=== PATIENT | female | born 1970 | race Caucasian/White ===

== ENCOUNTER 2016-12-15 21:21 | Emergency (ER) | payer OTHER ==
--- NOTE | 2016-12-15 22:50 | RAD ---
Indication: Left knee pain 4 views of left knee demonstrates no fracture. No joint effusion is noted. Ankle mortise is intact. IMPRESSION: No fracture of the left knee is noted.
--- NOTE | 2016-12-15 23:36 | ED ---
Lower Extremity - HPI Summary HPI Summary: Patient jumped 4-5 feet off a retaining wall today and felt a "crunch and pop" in her knee. She had immediate pain and has had pain with weight bearing. She denies previous injury to this knee. No swelling, bruising, warmth or redness. The knee feels unstable without catching, or clicking. She is able to bear weight. - History of Current Complaint Chief Complaint: EDExtremityLower Stated Complaint: LEFT KNEE INJURY Time Seen by Provider: 12/15/16 23:26 Hx Obtained From: Patient, Family/Education Professor Mechanism Of Injury: Fall From Height Of: - jump from 4-5 feet Onset of Pain: Immediate Onset/Duration: Hours Severity Initially: Severe Severity Currently: Severe Pain Intensity: 10 Timing: Constant Location: Is Discrete @ - left knee Character Of Pain: Sharp, Aching Associated Signs And Symptoms: Positive: Knee Pain Aggravating Factor(s): Standing Alleviating Factor(s): Rest Able to Bear Weight: Yes - with pain - Allergies/Home Medications Allergies/Adverse Reactions: Allergies Allergy/AdvReac Type Severity Reaction Status Date / Time No Known Allergies Allergy Verified 12/15/16 21:41 Home Medications: Home Medications NK [No Home Medications Reported] 12/15/16 [History Confirmed 12/15/16] PMH/Surg Hx/FS Hx/Imm Hx Cardiovascular History: Reports: Hx Hypertension - BORDERLINE HTN Musculoskeletal History: Reports: Other Musculoskeletal History - CTS RIGHT WRIST Sensory History: Reports: Hx Contacts or Glasses Denies: Hx Hearing Aid Opthamlomology History: Reports: Hx Contacts or Glasses - Surgical History Surgery Procedure, Year, and Place[place] [facility] Anesthesia Reactions: No Infectious Disease History: No Infectious Disease History: Denies: Traveled Outside the [place] in Last 30 Days - Family History Known Family History: Positive: None - Social History Occupation: Employed Full-time Lives: With Family Alcohol Use: None Substance Use Type: Reports: None Smoking Status (MU): Never Smoked Tobacco Have You Smoked in the Last Year: No Review of Systems Positive: Arthralgia, Myalgia, Decreased ROM. Negative: Edema Negative: Bruising Negative: Paresthesia, Numbness All Other Systems Reviewed And Are Negative: Yes Physical Exam Triage Information Reviewed: Yes Vital Signs On Initial Exam: Initial Vitals Temp Pulse Resp BP Pulse Ox 98.2 F 66 19 149/75 99 12/15/16 21:38 12/15/16 21:38 12/15/16 21:38 12/15/16 21:38 12/15/16 21:38 Vital Signs Reviewed: Yes Appearance: Positive: Well-Appearing, Pain Distress, Obese Skin: Positive: Warm, Skin Color Reflects Adequate Perfusion, Dry, Soft Head/Face: Positive: Normal Head/Face Inspection Eyes: Positive: EOMI, KIMMY, Conjunctiva Clear ENT: Positive: Hearing grossly normal Respiratory/Lung Sounds: Positive: Breath Sounds Present Cardiovascular: Positive: RRR Musculoskeletal: Positive: Limited @ - Left knee extension to 0, flexion to 90; stable varus/valgus stress, Pain @ - TTP left popliteal fossa, medial and lateral joint lines; non-tender MCL/LCL Neurological: Positive: Sensory/Motor Intact, Alert, Oriented to Person Place, Time, NV Bundle Intact Distally, Normal Gait Psychiatric: Positive: Affect/Mood Appropriate AVPU Assessment: Alert Diagnostics - Vital Signs Vital Signs Temp Pulse Resp BP Pulse Ox 12/15/16 21:40 98.2 F 66 18 149/75 100 12/15/16 21:38 98.2 F 66 19 149/75 99 - Laboratory Lab Statement: Any lab studies that have been ordered have been reviewed, and results considered in the medical decision making process. - Radiology No standard instances Xray Interpretation: No Acute Changes Radiology Interpretation Completed By: Radiologist Lower Extremity Course/Dx - Diagnoses Differential Diagnosis/HQI/PQRI: Positive: Arthritis, Bursitis, Cellulitis, Contusion, Dislocation, Fracture (Closed), Sprain, Strain Provider Diagnoses: Strain of left knee Discharge - Discharge Plan Condition: Stable Disposition: HOME Patient Education Materials: RICE Therapy (ED), Knee Pain (ED) Forms: *Work Release Referrals: Therese Corral MD [Primary Care Provider] - Kevin Ardon MD [Medical Doctor] - Additional Instructions: Please elevate your knee above your heart, apply ice several times daily for 20 minutes, wear a compression device (like an KATY bandage) and rest your knee. Use crutches to keep weight off the knee as your pain improves. Take ibuprofen 600mg three times daily with meals for the next 5-7 days to decrease swelling and pain. Call Orthopedics in the morning for an appointment next week for evaluation if your symptoms do not begin to improve. Return to the emergency department if symptoms worsen.
[2016-12-15] MEDS ORDERED: Ibuprofen TAB* 400 MG PO ONE (23:48)
[2016-12-16 00:17] VITALS: BP 137/69
== END 2016-12-16 00:10 | disposition home or self-care (01) ==
LOC: ED 21:21
DX: S83.92XA Sprain of unspecified site of left knee, initial encounter (principal); W13.8XXA Fall from, out of or through other building or structure, initial encounter; Y93.9 Activity, unspecified; Y92.9 Unspecified place or not applicable; Y99.9 Unspecified external cause status
CPT/HCPCS: 99282; A9270-GY

== ENCOUNTER 2018-06-29 06:04 | Observation (INO) | payer OTHER ==
--- NOTE | 2018-06-28 11:10 | CONS ---
CONSULTATION REPORT: DATE OF PROCEDURE: 06/29/18 REASON FOR CONSULT: I was asked by Dr. Hicks to see this 48-year-old white female for cystoscopy and bilateral ureteral stents insertion. HISTORY OF PRESENT ILLNESS: Ms. Hartley is followed by Dr. Hicks because of a 5- cm submucosal cervical fibroid. She is scheduled to undergo abdominal hysterectomy. Because of the proximity of the fibroid to the ureters, Dr. Hicks requested preoperative placement of bilateral ureteral stents. The patient has no history of renal diseases and/or any voiding symptoms. PLAN/RECOMMENDATIONS: The plan therefore is to proceed with cystoscopy, bilateral retrograde pyelographies and bilateral ureteral stents insertion just before her scheduled hysterectomy. The procedure will be done under the same anesthetic. Because of the expected edema in the ureters from the surgery, the plan is to leave the stents in for about a week, and they will be removed in the office as an outpatient afterwards. I discussed the above plans in detail with the patient and her . All their questions were answered. [id number]/CPS #: [id number] GEOFFREY
[~2018-06-29 06:04] MED LIST: Acetaminophen TAB* 325 MG PO ONE; Buffered Lidocaine 0.9% SYRIN* 5 ML/SYR SYRINGE INTRADERM ONE; Gabapentin CAP(*) 300 MG PO ONE
--- OUTSIDE RECORDS SUMMARY | 2018-06-29 06:07 | XMS REPORT | Continuity of Care Document ---
:1970 External Reference #:[id number] Author Name Agnes Hicks MD Address [address] [facility] [place] [address] Care Team Providers Name Role Phone Sara Corral MD Primary Care Physician Unavailable Payers Type Date Identification Numbers Payment Provider Subscriber Policy Number: [id number] [employer] Ppo Vincent Angeles PayID: [id number] [address] [place] [address] Advance Directives Description No Information Available Problems Description No Active Problems Family History Date Family Member(s) Problem(s) Comments Father Hypertension Father due to Unknown Causes () Mother [place] Mother Hypertension Number of Children 3 First Son Healthy Second Son A&W First Daughter Healthy Number of Siblings Siblings: 1 First Brother Osteoarthritis Social History Type Date Description Comments Sex Unknown Education Highest level of education completed is a master's degree Marital Status Patient is Living Situation Lives with spouse, sons and daughter Diet Diet is healthy and well balanced Occupation It Cigarette Use Never smoked cigarettes Alcohol Denies alcohol use Tobacco Use Start: Unknown Patient has never smoked Drug Use Denies drug use Smoking Status Reviewed: 06/13/18 Patient has never smoked Daily Caffeine Drinks on average 1 cup of coffee a day Exercise Type/Frequency Exercises sporadically Current Seat Belt/Car Seat Always uses a seat belt Currently Active The patient is currently sexually active STD's Has genital herpes UNKNOWN Buddhism Allergies, Adverse Reactions, Alerts Description No Known Drug Allergies Medications Medication Date Status Form Strength Qnty SIG Indications Ordering Provider Lupron Depot 03/13 Active Kit 11.25mg 1units Inject Agnes (3-Month) 11.25MG MD Kurt Intramu scularl y Every 3 Months (Given AT [facility]) Hydrochlorothia 03/06 Active Capsules 12.5mg 90caps 1 by Rik morrissey mouth s Doctor every day Taytulla 03/06 Hx Capsules 1-20mg-mc samplepac 2 by Agnes g(24) ket mouth MD Kurt - every 12/ day for 5 days then 1 po qd No Active 07/06 Hx Unknown Medications /2017 - 03/06 Labetalol HCL 03/13 Hx Tablets 100mg 60tabs two Angelica Kamila tabs PO COLLEGE ARCHIVIST, CNM - twice 06/26 daily Acyclovir 02/26 Hx Tablets 400mg 60tabs 1 PO Nghia ATim /2007 bid Dian Wilburn - 06/26 Glucometer 12/18 Hx Kit Sinai Jump, Elite Classic /2007 ANP-C - 12/18 Accu-Chek 12/18 Hx Strips 100units use as Sinai Jump, Active Strips /2007 directe ANP-C - d 06/26 Accu-Chek 12/18 Hx Kit 1units use as Sinai Jump, Compact Plus /2007 directe ANP-C Care Kit - d 08/26 Accu-Chek 12/18 Hx Misc 100units use as Sinai Jump, Multiclix directe ANP-C Lancets - d 08/26 Prenate 08/29 Hx 100units 1 po qd Nghia Nickerson Dian Wilburn Vitamins - 06/26 None Hx Unknown /0000 - 08/26 Metoprolol Hx Unknown Succinate ER /0000 - 06/29 Medications Administered in Office Medication Date Status Form Strength Qnty SIG Indications Ordering Provider PT SCRN Tbco Administered Injection Agnes Id as Non User 018 MD Kurt PT SCRN Tbco Administered Injection Agnes Id as Non User 018 MD Kurt PT SCRN Tbco Administered Injection Agnes Id as Non User 018 MD Kurt PT SCRN Tbco Administered Injection Agnes Id as Non User 018 MD Kurt PT SCRN Tbco Administered Injection Júnior E. Id as Non User 004 Dian Winters PT SCRN Tbco Administered Injection Júnior Hopson Id as Non User 004 Dian Winters Immunizations Description No Information Available Vital Signs Date Vital Result Comment 06/13/2018 10:03am BP Systolic 148 mmHg BP Diastolic 88 mmHg Body Temperature 98.4 F Heart Rate 80 /min Respiratory Rate 16 /min Height 63 inches 5'3" Weight 190.00 lb BMI (Body Mass Index) 33.7 kg/m2 Last Menstrual Period [id number] 3 Parity 3 03/13/2018 11:37am BP Systolic 126 mmHg BP Diastolic 76 mmHg Height 63 inches 5'3" Weight 190.00 lb BMI (Body Mass Index) 33.7 kg/m2 Last Menstrual Period [id number] 3 Parity 3 03/06/2018 8:47am BP Systolic 162 mmHg BP Diastolic 82 mmHg Height 63 inches 5'3" Weight 190.00 lb BMI (Body Mass Index) 33.7 kg/m2 Last Menstrual Period [id number] 3 Parity 3 07/06/2017 3:10pm BP Systolic 148 mmHg BP Diastolic 76 mmHg Height 63 inches 5'3" Weight 193.00 lb BMI (Body Mass Index) 34.2 kg/m2 Last Menstrual Period 1501021 3 Parity 3 08/26/2014 9:19am BP Systolic 160 mmHg BP Diastolic 82 mmHg Height 64.0 inches 5'4" Weight 185.00 lb BMI (Body Mass Index) 31.8 kg/m2 Last Menstrual Period [id number] 3 Parity 3 08/09/2011 7:54am BP Systolic 136 mmHg BP Diastolic 82 mmHg Height 63.50 inches 5'3.50" Weight 184.00 lb BMI (Body Mass Index) 32.1 kg/m2 Last Menstrual Period 8229052 3 Parity 3 04/01/2008 9:37am BP Systolic 138 mmHg L And R Arm BP Diastolic 90 mmHg L And R Arm Body Temperature 96.3 F Height 63.5 inches 5'3.50" Weight 198.00 lb BMI (Body Mass Index) 34.5 kg/m2 Last Menstrual Period 0 03/27/2008 1:11pm BP Systolic 134 mmHg BP Diastolic 80 mmHg Height 63.5 inches 5'3.50" Weight 200.00 lb BMI (Body Mass Index) 34.9 kg/m2 Last Menstrual Period 0 03/13/2008 1:06pm BP Systolic 164 mmHg BP Diastolic 92 mmHg Body Temperature 97.9 F Height 63.5 inches 5'3.50" Weight 198.00 lb BMI (Body Mass Index) 34.5 kg/m2 Last Menstrual Period 0 08/30/2007 9:41am BP Systolic 132 mmHg BP Diastolic 74 mmHg Height 63.5 inches 5'3.50" Weight 180.00 lb BMI (Body Mass Index) 31.4 kg/m2 Last Menstrual Period 0576003 3 Parity 2 08/24/2007 10:12am BP Systolic 122 mmHg BP Diastolic 74 mmHg Height 63.5 inches 5'3.50" Weight 179.00 lb BMI (Body Mass Index) 31.2 kg/m2 Last Menstrual Period [id number] 06/22/2006 8:37am BP Systolic 118 mmHg BP Diastolic 80 mmHg Height 63.5 inches 5'3.50" Weight 166.00 lb BMI (Body Mass Index) 28.9 kg/m2 05/18/2005 8:56am BP Systolic 122 mmHg BP Diastolic 70 mmHg Height 63.5 inches 5'3.50" Weight 175.00 lb BMI (Body Mass Index) 30.5 kg/m2 Last Menstrual Period 5955051 2 Parity 2 Results Test Date Facility Test Result H/L Range Note CBC Auto Diff 06/18/2018 [facility] White Blood 9.1 10^3/uL N 3.5-10.8 [place] [address] Count [phone] Red Blood Count 4.94 10^6/uL N 4.00-5.40 Hemoglobin 12.9 g/dL N 12.0-16.0 Hematocrit 39 % N 35-47 Mean Corpuscular Volume 79 fL Low 80-97 Mean Corpuscular Hemoglobin 26 pg Low 27-31 Mean Corpuscular HGB Conc 33 g/dL N 31-36 Red Cell Distribution Width 15 % N 10.5-15 Platelet Count 359 10^3/uL N 150-450 Mean Platelet Volume 7.6 fL N 7.4-10.4 Abs Neutrophils 5.2 10^3/uL N 1.5-7.7 Abs Lymphocytes 2.8 10^3/uL N 1.0-4.8 Abs Monocytes 0.7 10^3/uL N 0-0.8 Abs Eosinophils 0.3 10^3/uL N 0-0.6 Abs Basophils 0.1 10^3/uL N 0-0.2 Abs Nucleated RBC 0 10^3/uL Granulocyte % 57.2 % Lymphocyte % 30.6 % Monocyte % 7.9 % Eosinophil % 3.3 % Basophil % 1.0 % Nucleated Red Blood Cells % 0 Type And Screen 06/18/2018 [facility] Patient Blood Type A Positive [place] [id number] [phone] Antibody Screen NEGATIVE Laboratory test 07/06/2017 [facility] Cytology SEE RESULT BELOW 1 finding [place] [address] [phone] Laboratory test 08/26/2014 [facility] Cytology RUN DATE: [place] [address] <SEE NOTE> [phone] Human Papilloma Virus Rna Negative N Negative 3 Laboratory test 08/09/2011 [facility] Cyt[place] [address] [place] [address] <SEE NOTE> [phone] CBC With 02/29/2008 [facility] White Blood 9.3 CUMM 4.8- [place] [address] Count 10.8 Stat [phone] Red Cell Count 4.15 CUMM Low 4.2-5.4 Hemoglobin 12.7 g/dL 12.0-16.0 Hematocrit 36 % 35-47 Mean Corpuscular Volume 86 um3 79-97 Mean Corpuscular Hemoglob 31 pg 27-31 Mean Corpuscular HGB Cone 36 g/dL 32-36 Redcell Distribution WDTH 14 % 10.5-15 Platelet Count 170 CUMM 150-450 Mean Platelet Volume 9.0 um3 7.4-10.4 Gran % 65.2 % 38-83 Lymph % 25.2 % 20-45 Mononuclear % 8.1 % 1-9 Eosinophil % 1.1 % 0-6 Basophil % 0.4 % 0-2 Abs Lymphs 2.3 1.0-4.8 Abs Mononuclear 0.8 0-0.8 Absolute Neutrophil Count 6.0 1.5-7.7 Abs Eosinophils 0.1 0-0.6 Abs Basophils 0 0-0.2 Uric Acid Stat 02/29/2008 [facility] Uric Acid 9.8 mg/dL High 2.6-7.2 [place] [address] [phone] Laboratory test 02/29/2008 [facility] Alt (SGPT) 36 U/L 14- 54 [place] [address] [phone] Ast (Sgot) 28 U/L 12-42 Urinalysis W/Microscopic Stat 02/29/2008 [facility] Ua Color STRAW [place], [place] [id number] [phone] Appearance-Urine HAZY Specific [place]-Ur 1.007 Low 1.010-1.030 Esterase-Urine NEGATIVE Negative Nitrite NEGATIVE Negative Hbmkasgaywdz-Fp-VPZ NEGATIVE Negative Protein-Urine 2+ Abnormal Negative PH-Urine 7.0 5-9 Blood-Urine TRACE Abnormal Negative Ketones-Urine NEGATIVE Negative Bilirubin-Ur NEGATIVE Negative Glucose-Urine NEGATIVE Negative WBC-Urine RARE 0-5 RBC-Urine RARE 0-2 Mucus Urine SMALL Epith Cells-Ur MODERATE Bacteria-Urine RARE Amorphous Sed-U FEW Laboratory test 02/20/2008 [facility] Genital For [POSITIVE FOR GR 5 [place] [address] GRP B Strep <SEE NOTE> [phone] Only Laboratory test 12/18/2007 [facility] 1HR Glucose 226 mg/dL 6 finding [place], [place] [id number] [phone] Fasting Glucose 110 mg/dL 70-110 3HR Glucose 85 mg/dL 7 2HR Glucose 168 mg/dL 8 Total Protein 24HR 12/06/2007 [facility] Total Protein RD 8 mg/ [place] [address] Urine OB Pat [phone] Urine Total Protein/24HR 128 MG/24HR 0-165 Creatinine 12/06/2007 [facility] Creatinine Random 89.0 mg/[place] [address] Urine [phone] Serum Creatinine/Creat CL 0.8 mg/dL 0.5-1.4 Creat Clearance 124 mL/min 80-125 Hours Of Collection 24 HR 24- Urine Volume Measurement 1600 ML CBC With 12/06/2007 [facility] White Blood 8.5 CUMM 4.8-10.8 9 [place] [address] Count [phone] Red Cell Count 4.37 CUMM 4.2-5.4 Hemoglobin 13.0 g/dL 12.0-16.0 Hematocrit 38 % 35-47 Mean Corpuscular Volume 86 um3 79-97 Mean Corpuscular Hemoglob 30 pg 27-31 Mean Corpuscular HGB Cone 35 g/dL 32-36 Redcell Distribution WDTH 13 % 10.5-15 Platelet Count 285 CUMM 150-450 Mean Platelet Volume 9.3 um3 7.4-10.4 Gran % 66.6 % 38-83 Lymph % 26.4 % 20-45 Mononuclear % 5.6 % 1-9 Eosinophil % 0.9 % 0-6 Basophil % 0.5 % 0-2 Abs Lymphs 2.2 1.0-4.8 Abs Mononuclear 0.5 0-0.8 Absolute Neutrophil Count 5.7 1.5-7.7 Abs Eosinophils 0.1 0-0.6 Abs Basophils 0 0-0.2 Laboratory test 12/06/2007 [facility] Uric Acid 7.3 mg/dL High 2.6-7.2 [place] [address] [phone] Renal Function 12/06/2007 [facility] Sodium 135 mmol/L 135- 145 [place] [address] [phone] Potassium 4.1 mmol/L 3.5-5.0 Chloride 109 mmol/L 101-111 Co2 (Carbon Dioxide) 23.0 mmol/L 22-32 Glucose 211 mg/dL High 70-105 BUN 9 mg/dL 6-24 Creatinine 0.8 mg/dL 0.5-1.4 BUN/Creatinine Ratio 11.3 8-20 Calcium 8.9 mg/dL 8.1-9.9 10 Phosphorus 3.3 mg/dL 2.4-4.7 Liver Function 12/06/2007 [facility] Total Protein 5.6 GM/DL Low 6.2-8.1 [place] [address] [phone] Albumin 2.9 GM/DL Low 3.6-5.4 Globulin 2.7 GM/DL 2-4 Albumin/Globulin Ratio 1.1 1-3 Bilirubin Total 0.3 mg/dL Low 0.4-1.5 Bilirubin Direct 0.1 mg/dL 0.1-0.5 Indirect Bilirubin 0.2 mg/dL 0.1-0.75 Alkaline Phosphatase 43 U/L 30-110 Alt (SGPT) 11 U/L Low 14-54 Ast (Sgot) 19 U/L 12-42 Parvovirus B19 AB 09/17/2007 [facility] Parvovirus B19 AB (Igm) 0.3 index < 0.9 11 (Igg,M) Parvovirus B19 AB (Igg) 5.1 index High <0.9 Vad 09/07/2007 [facility] Vad Final NONREACTIVE Nonreactive 12 [place] [address] [phone] 1 TS 09/07/2007 [facility] [place] [address] Blood Type [phone] Antibody Screen NEGATIVE 1 09/07/2007 [facility] Hepatitis [place] [address] Surface Ag [phone] Rubella Screen IMMUNE Immune White Blood Count 9.9 CUMM 4.8-10.8 Hematocrit 38 % 35-47 Hemoglobin 12.9 g/dL 12.0-16.0 Mean Corpuscular HGB Cone 34 g/dL 32-36 Mean Corpuscular Hemoglob 30 pg 27-31 Mean Corpuscular Volume 87 um3 79-97 Mean Platelet Volume 8.7 um3 7.4-10.4 13 Platelet Count 313 CUMM 150-450 Red Cell Count 4.34 CUMM 4.2-5.4 Redcell Distribution WDTH 13 % 10.5-15 RPR NON REACTIVE Nonreactive N Gonorrhoeae Dna,Sda,Pap Vial 08/31/2007 [facility] GENITAL-CERVIX N.Gonorrhoeae Dna,Sda NOT DETECTED Not Detected 14 Laboratory test 08/30/2007 [facility] Urine Culture SPECIMEN 15 [place] [address] Sensitivi CONTAIN <SEE [phone] NOTE> GC/ZHL On Thin 08/24/2007 [facility] CHL On Thin NEGATIVE Negative 16 [place] [address] Prep Vial [phone] GC On Thin Prep Vial NEGATIVE Negative 17 Laboratory test 08/24/2007 [facility] Cytology <SEE 18 [place] [address] NOTE> [phone] Laboratory test 06/22/2006 [facility] Cytology <SEE 19 [address] [place], [place] [address] NOTE> [phone] 1 SEE RESULT BELOW Name: VINCENT ANGELES V : [address]: Agnes Hicks MD Acct: [id number] Unit: [id number] AGE: 47 Location: [facility] Re07/06/17 SEX: F Status: REG REF SPEC: [id number] MUSA: 07/06/17-1607 [facility] DR: Agnes Hicks MD REQ: [id number] RECD: 07/07/17-1211 STATUS: SOUT _ ORDERED: TP IMAGE ANAL, HPV/Thin Prep COMMENTS: [id number] Negative for Intraepithelial lesion or Malignancy A. Ectocervical/Endocervical Specimen Adequacy: Satisfactory of evaluation Transformation zone component identified Patient Information: HPV: High risk HPV RNA testing regardless of pap results. Actual Specimen Date: 07/06/17 Last Menstrual Date: 06/30/17 Date of Last Specimen: 08/26/14 Date Time Test Result Flag (u) Normal Range 07/06/17 1607 @ HPV RNA Negative Negative @ @ The high-risk HPV types detected by the assay include: 16, @ 18, 31, 33, 35, 39, 45, 51, 52, 56, 58, 59, 66, and 68. Signed (signature on file) CHANTAL Shepard(ASCP) 07/10 9977 This Pap test was evaluated with the assistance of the poLightPrep Test Imaging System. Due to cytologic findings at the cardiovascular operating room nurse microscope, comprehensive manual rescreening by a Catalogue Clerk may be required. The Pap Smear is a screening test designed to aid in the detection of premalignant and malignant conditions of the uterine cervix. It is not a diagnostic procedure and should not be used as the sole means of detecting cervical cancer. Both false- positive and false- negative reports do occur. Depending on your risk status, a Pap smear should be obtained and evaluated every 1-3 years. END OF REPORT * ML=Testing performed at Main Lab DEPARTMENT OF PATHOLOGY, [address] [place] [address] Reji Matthews M.D. Director MARIYA # [id number] 2 RUN DATE: 08/27/14 [facility] LAB LIVE PAGE 1 RUN TIME: [address] [place], [place] [address] Specimen Inquiry Name: VINCENT ANGELES Christopher : [address]: Agnes Hicks MD Acct: [id number] Unit: [id number] AGE: 44 Location: [facility] Re08/26/14 SEX: F Status: REG REF SPEC: [id number] MUSA: 08/26/14-[address]: Agnes Hicks MD REQ: [id number] RECD: 08/26/14 STATUS: SOUT _ ORDERED: IMAGE ANALYSIS, HPV/Thin Prep FINAL DIAGNOSIS Negative for Intraepithelial lesion or Malignancy A. Ectocervical/Endocervical Specimen Adequacy: Satisfactory of evaluation Transformation zone component identified Patient Information: HPV: High risk HPV RNA testing regardless of pap results. Actual Specimen Date: 08/26/14 Last Menstrual Date: 08/18/14 Date of Last Specimen: 07/09/11 Date Time Test Result Flag (u) Normal Range 08/26/14 1009 HPV RNA Negative Negative The high-risk HPV types detected by the assay include: 16, 18, 31, 33, 35, 39, 45, 51, 52, 56, 58, 59, 66, and 68. Signed (signature on file) CHANTAL Sun (ASCP) 08/27 1316 This Pap test was evaluated with the assistance of the Authentixp Test Imaging System. Due to cytologic findings at the cardiovascular operating room nurse microscope, comprehensive manual rescreening by a Catalogue Clerk may be required. The Pap Smear is a screening test designed to aid in the detection of premalignant and malignant conditions of the uterine cervix. It is not a diagnostic procedure and should not be used as the sole means of detecting cervical cancer. Both false- positive and false- negative reports do occur. Depending on your risk status, a Pap smear should be obtained and evaluated every 1-3 years. END OF REPORT * ML=Testing performed at Main Lab DEPARTMENT OF PATHOLOGY, [address] [place] [address] Reji Matthews M.D. Director [facility] # [id number] 3 The high-risk HPV types detected by the assay include: 16, 18, 31, 33, 35, 39, 45, 51, 52, 56, 58, 59, 66, and 68. 4 --- RUN DATE: 08/10/11 [facility] NMI LIVE PAGE 1 RUN TIME: 153 Specimen Inquiry RUN USER: INTERFACE -- Name: VINCENT ANGELES V Status: REG REF Re08/09/11 Age/Sex: 41/F Unit#: [id number] Location: [facility] : 70 -- Specimen: [id number] SOUT Spec Date: 08/09/[address]: Mary samson MD Spec Type: CYTOLOGY Received: 08/09/11-1622 Copies to: [facility]OURCE ECTOCERVICAL/ENDOCERVICAL Thin Prep with Reflex HPV Test PATIENT INFORMATION ACTUAL COLLECTION DATE: 08/09/11 ? No POST MENOPAUSAL? No LAST MENSTRUAL PERIOD: 07/28/11 PATIENT HISTORY: Prior 2008 Elsewhere ADEQUACY OF SPECIMEN Satisfactory for evaluation * Transformation zone component identified * DIAGNOSIS NEGATIVE FOR INTRAEPITHELIAL LESION OR MALIGNANCY * This Pap test was evaluated with the assistance of the ThinPrep Pap Test Imaging System. The Pap Smear is a screening test designed to aid in the detection of premalign ant and malignant conditions of the uterine cervix. It is not a diagnostic procedure a nd should not be used as the sole means of detecting cervical cancer. Both false- positiv e and false-negative reports do occur. Depending on your risk status, a Pap smear latisha uld be obtained and evaluated every one to three years. Initial evaluation performed by João C[facility]) 08/10/11 Final Interpretation electronically signed by: João C[facility]) 08/10/11 153 7 -- -- DEPARTMENT OF PATHOLOGY, [address] [place] [address] [facility] Permit #[id number] Reji Matthews M.D. Director Dorothy Jaramillo M.D. Classifier Dir gerardo -- 5 [POSITIVE FOR GRP B BETA STREP] POSITIVE FOR GRP B BETA STREP 6 REFERENCE RANGE: 20-50 MG/DL ABOVE FASTING 7 REFERENCE RANGE: FASTING OR 10 MG/DL BELOW 8 REFERENCE RANGE: 5-15 MG/DL ABOVE FASTING 9 GLUCOSE IS 1HR POST 50GM LOAD. 10 Please note change in reference range effective 07 . 11 Reference range: IgG and IgM Index <0.9 Negative 0.9-1.1 Equivocal >1.1 Positive Interpretation: NEGATIVE: No antibody detected. This individual may be susceptible to parvovirus B-19 infection. POSITIVE: Indicative of exposure to parvovirus B-19. EQUIVOCAL results are those results too close to the cut-off values to interpret. A second sample should be drawn in two weeks, if clinically indicated. Specific IgG persists for years, and provides lifetime immunity. A majority of adults show evidence of past infection. If definitive diagnosis of acute parvovirus infection is desired, a parvovirus B-19 IgM should be obtained. Due to the poor humoral immune response in the immunocompromised, the chronically anemic, and the fetus, both antibody and DNA PCR tests are recommended for definitive diagnosis of parvovirus B-19 infection in these patients. 12 FINAL INTERPRETATION: No HIV antibody is detected. . This information has been disclosed to you from confidential records which are protected by [place] State law. State law prohibits you from making further disclosure of this information without the specific written consent of the person to whom it pertains, or as otherwise permitted by law. Any unauthorized further disclosure in violation of state law may result in a fine or [place] [facility] [place] sentence or both. General authorization for the release of medical or other information is not, except in limited circumstances set forth in Part 63, Title 10, of [facility], sufficient authorization for further disclosure. Disclosure of confidential HIV information that occurs as the result of a general authorization for the release of medical or other information will be in violation of the state law and may result in a fine or a [place] health [place] sentence. . 13 SPECIMEN RECEIVED IS TOO OLD FOR ACCURATE DIFFERENTIAL. IF DIFFERENTIAL IS DESIRED, PLEASE RESUBMIT A FRESH SPECIMEN LESS THAN 24 HOURS OLD. 14 THE PERFORMANCE CHARACTERISTICS OF THIS ASSAY HAVE BEEN DETERMINED BY [employer]yl. PERFORMANCE CHARACTERISTICS REFER TO THE ANALYTICAL PERFORMANCE OF THE TEST USING LIQUID BASED CYTOLOGY SAMPLES. 15 SPECIMEN CONTAINS NORMAL URETHRAL OR PERINEAL LINDSEY AND DOES NOT SUGGEST URINARY TRACT INFECTION 25^10-25,000 ORGANISMS/ML (MODERATE)^CCU 16 . A negative result does not preclude the presence of a C.trachomatis or N.gonorrhoeae infection because results are dependent on adequate specimen collection, absence of inhibitors, and sufficient rRNA to be detected. Test results may be affected by improper specimen collection, improper specimen storage, technical error, or specimen mixup. . 17 . A negative result does not preclude the presence of a C.trachomatis or N.gonorrhoeae infection because results are dependent on adequate specimen collection, absence of inhibitors, and sufficient rRNA to be detected. Test results may be affected by improper specimen collection, improper specimen storage, technical error, or specimen mixup. . 18 ---- RUN DATE: 08/28/07 [facility] LIVE PAGE 1 RUN TIME: 1101 Specimen Inquiry RUN USER: INTERFACE [id number] VINCENT ANGELES V 37/F <REG REF > ([id number]) Júnior Gan MD -- Specimen: [id number] SOUT Spec Date: 08/24/[address]: Júnior devlin MD Spec Type: CYTOLOGY Received: 08/27/07-1100 Copies to: SOURCE ECTOCERVICAL/ENDOCERVICAL Thin Prep with Reflex HPV Test PATIENT INFORMATION ACTUAL COLLECTION DATE: 08/24/07 ? YES LAST MENSTRUAL PERIOD: 06/18/07 DATE OF PRIOR SPECIMEN: 06/22/06 PREVIOUS CYTOLOGY/SURGICAL SPECIMEN #: [id number] ADEQUACY OF SPECIMEN Satisfactory for evaluation * Transformation zone component identified * DIAGNOSIS NEGATIVE FOR INTRAEPITHELIAL LESION OR MALIGNANCY * This Pap test was evaluated with the assistance of the poLightPrep Pap Test Imaging System. The Pap Smear is a screening test designed to aid in the detection of premalign ant and malignant conditions of the uterine cervix. It is not a diagnostic procedure a nd should not be used as the sole means of detecting cervical cancer. Both false- positive and false-negative reports do occur. Depending on your risk status, a Pap smear latisha uld be obtained and evaluated every one to three years. Final Interpretation electronically signed by: Seymour GORDON(ASCP) 08/28/07 1101 -- -- DEPARTMENT OF PATHOLOGY, [address] [place] [address] [facility] Permit #[id number] Reji Matthews M.D. Director of Laboratories -- 19 ---- RUN DATE: 06/27/06 [facility] NMI LIVE PAGE 1 RUN TIME: 1505 Specimen Inquiry RUN USER: INTERFACE [id number] VINCENT ANGELES V 36/F <REG REF 06/22> ([id number]) Júnior Gan MD -- Specimen: [id number] SOUT Spec Date: 06/22/[address]: Júnior devlin MD Spec Type: CYTOLOGY Received: 06/22/06-1406 Copies to: SOURCE ECTOCERVICAL/ENDOCERVICAL Thin Prep with Reflex HPV Test PATIENT INFORMATION ACTUAL COLLECTION DATE: 06/22/06 LAST MENSTRUAL PERIOD: 05/30/06 DATE OF PRIOR SPECIMEN: 05/18/05 PREVIOUS CYTOLOGY/SURGICAL SPECIMEN #: [id number] ADEQUACY OF SPECIMEN Satisfactory for evaluation * Transformation zone component identified * DIAGNOSIS NEGATIVE FOR INTRAEPITHELIAL LESION OR MALIGNANCY * The Pap Smear is a screening test designed to aid in the detection of premalign ant and malignant conditions of the uterine cervix. It is not a diagnostic procedure a nd should not be used as the sole means of detecting cervical cancer. Both false- positive and false-negative reports do occur. Depending on your risk status, a Pap smear latisha uld be obtained and evaluated every one to three years. Signed Electronically signed João CUNNINGHAM(ASCP) 06/27/06 -- -- DEPARTMENT OF PATHOLOGY, [address] [place] [address] [facility] Permit #[id number] Cameron Camargo II, M.D. Director Dian Jenningsctcasa -- Procedures Date Code Description Status 03/30/2018 23746 Injection Intramuscular Or Subcutaneous Completed 03/13/2018 69999 Echography Transvaginal Completed 06/26/2015 90031017 Mammogram Completed 03/01/2008 11233 Delivery Routine Completed 02/27/2008 82022 Biophysical Profile W/ NST Completed 02/27/2008 75133 Non-Stress Test Completed 02/20/2008 38791 Non-Stress Test Completed 02/20/2008 80129 Non-Stress Test Completed 02/08/2008 22769 Non-Stress Test Completed 11/01/2007 87100 Echography Uterus Complete Completed 11/01/2007 47210 Echography Uterus Complete Completed 09/07/2007 26662 Nuchal Translucency Ultrasound /First Completed Gestation 09/07/2007 41446 Nuchal Translucency Ultrasound /First Completed Gestation 08/30/2007 61420 OB Ultrasound First Trimester Completed Encounters Type Date Location Provider Dx Diagnosis Office Visit 06/13/2018 [facility] Agnes Hicks D25.0 Submucous leiomyoma 10:00a of uterus Office Visit 03/13/2018 [facility] Office Agnes Hicks D25.0 Submucous leiomyoma 12:00p of uterus Office Visit 03/06/2018 [facility] Agnes Hicks, N92.0 Excessive and 8:45a MD frequent menstruation with regular cycle Office Visit 07/06/2017 [facility] Agnes Hicks, Z01.419 Encntr for brand engineer exam 3:00p (general) (routine) w/o abn findings Office Visit 08/09/2011 [facility] Mary Dumas V72.31 Routine Lawn Caretaker 8:00a MD Examination V76.2 Screening Malignant Neoplasm Cervix Office Visit 03/27/2008 1:00p [facility] Office Angelica Treviño V45.89 Postsurgical Status COLLEGE ARCHIVIST, CNM Other 642.54 Pre-Eclampsia Severe Cond Or Compl V24.2 Care & Examination Routine Follow Up Office Visit 08/24/2007 10:20a [facility] Office Júnior Winters V76.2 Screening Malignant M.D. Neoplasm Cervix V72.31 Routine Lawn Caretaker Examination V22.1 Supervison Of Normal Other V72.41 Test Negative V72.40 Test Unconfirm V72.42 Examination Or Test Positive Result V72.84 Examination Preoperative Unspec Office Visit 06/22/2006 8:40a [facility] Júnior BostonTim Winters, V76.41 Screening Malignant M.D. Neoplasm Rectum V76.2 Screening Malignant Neoplasm Cervix V78.0 Screening Iron Deficiency Anemia V77.1 Screening Diabetes Mellitus V72.31 Routine Lawn Caretaker Examination Office Visit 05/18/2005 9:00a [facility] Júnior BostonTim Winters, V76.2 Screening Malignant M.D. Neoplasm Cervix V72.32 Pap Smear Confirmation V76.41 Screening Malignant Neoplasm Rectum V78.0 Screening Iron Deficiency Anemia V72.31 Routine Lawn Caretaker Examination V77.1 Screening Diabetes Mellitus Office Visit 04/27/2004 1:00p [facility] Júnior BostonTim Winters, V72.31 Routine Lawn Caretaker M.D. Examination V78.0 Screening Iron Deficiency Anemia V76.41 Screening Malignant Neoplasm Rectum V77.1 Screening Diabetes Mellitus Plan of Treatment Future Appointment(s):06/29/2018 9:30 am - Jessica Saleh MD at [facility] 2018 9:30 am - Agnes Hicks MD at [facility] 07/23/2018 11:30 am - Agnes Hicks MD at [facility]07/05/2018 9:40 am - JOSE Zhang at [facility]06/13/2018 - Agnes Hicks, MDD25.0 Submucous leiomyoma of uterusComments:Pt with favorable response with bleeding on Lupron but fibroid still enlarged and vascular. Pt opts at this point to undergo total abdominal hysterectomy with salpingectomy. Pt is aware of options of consult for laparoscopic hysterectomy but prefers to have total abdominal hysterectomy through prior scar. Pt is aware of risk associated with hysterectomy and bilateral salpingectomy to includebut not limited to infection, bleeding , damage to internal organs, need for further surgery, pain ,scarring. Consent form personally reviewed and signed with patient. All questions answered.
[2018-06-29] MEDS ORDERED: ceFOXitin 2 GM IVPREMIX* 2 GM/50 ML BAG ONE (06:32)
[2018-06-29] MEDS ORDERED: Gabapentin CAP(*) 300 MG ONE (06:32)
[2018-06-29] MEDS ORDERED: Acetaminophen TAB* 325 MG ONE (06:32)
[2018-06-29] MEDS: Lactated Ringers 1000 ML Bag* 1,000 ML IV SCH ×2 (06:55→11:53)
[2018-06-29] MEDS ORDERED: Iohexol 180 (CONTRAST) 10 ML SDV IV ONE (07:07)
[2018-06-29] MEDS ORDERED: fentaNYL* 50 MCG/ML 2 ML VIAL (100 MCG VIAL) ONE ×4 (07:19→13:40)
[2018-06-29] MEDS ORDERED: Midazolam* 1 MG/ML 2 ML VIAL (2 MG) ONE ×2 (07:19→08:06)
[2018-06-29] MEDS ORDERED: Bupivacaine 0.5% W/EPI SDV* 30 ML VIAL ONE (07:23)
[2018-06-29] MEDS ORDERED: Rocuronium* 10 MG/ML VIAL ONE (08:05)
[2018-06-29] MEDS ORDERED: Propofol* 10 MG/ML 20 ML BTL ONE (08:05)
[2018-06-29] MEDS ORDERED: Famotidine IV* 10 MG/ML 2 ML (20 mg) ONE (08:05)
[2018-06-29] MEDS ORDERED: Dexamethasone IV* 4 MG/ML 1 ML (4 MG) ONE (08:05)
[2018-06-29] MEDS ORDERED: Ondansetron INJ* 2 MG/ML VIAL ONE (08:05)
[2018-06-29] MEDS ORDERED: VASOPRESSIN 20 UNITS/ML 1 ML VIAL ONE (08:06)
[2018-06-29] MEDS ORDERED: HYDROmorphone INJ1* 1 MG/ML SYRINGE ONE (09:18)
[2018-06-29] MEDS ORDERED: Ondansetron INJ* 2 MG/ML VIAL IV PRN (10:17)
[2018-06-29] MEDS ORDERED: diPHENhydraMINE IV* 50 MG/ML 1 ml VIAL (BENADRYL) IV PRN (10:17)
[2018-06-29] MEDS ORDERED: HYDROcodone/ACETAMIN 5-325 MG* 1 TAB PO PRN ×2 (10:17)
[2018-06-29] MEDS ORDERED: Scopolamine 1.5 mg* PATCH TRANSDERM PRN (10:17)
[2018-06-29] MEDS ORDERED: DiMENhydriNATE IV* 50 MG/ML VIAL IV PUSH PRN (10:17)
[2018-06-29] MEDS ORDERED: Acetaminophen TAB* 325 MG PO PRN (10:17)
[2018-06-29] MEDS ORDERED: PROCHLORPERAZINE INJ 5 MG/ML 2 ML VIAL IV PRN ×2 (10:17→15:56)
[2018-06-29] MEDS ORDERED: Naloxone* 0.4 MG/ML 1 ML VIAL IV PRN (10:17)
[2018-06-29] MEDS ORDERED: HYDROmorphone INJ1* 1 MG/ML SYRINGE IV PRN (10:17)
[2018-06-29] MEDS ORDERED: Ketorolac INJ* 30 MG/ML 1 ML VIAL ONE (10:25)
[2018-06-29] MEDS: fentaNYL* 50 MCG/ML 2 ML VIAL (100 MCG VIAL) IV PRN ×2 (11:50→13:41)
[2018-06-29] MEDS ORDERED: hydrALAZINE IV* 20 MG/ML VIAL ONE (13:20)
[2018-06-29] MEDS ORDERED: PROCHLORPERAZINE INJ 5 MG/ML 2 ML VIAL ONE (15:23)
[2018-06-29] MEDS ORDERED: oxyCODONE/Acetamin 5/325 MG* TAB PO PRN ×2 (15:55)
[2018-06-29] MEDS: Ibuprofen TAB* 600 MG PO SCH ×2 (16:54→21:00)
--- NOTE | 2018-06-29 19:35 | OP ---
CC: Agnes Hicks MD.* DATE OF OPERATION: 06/29/18 - ROOM #351 DATE OF : 70 SURGEON: Dr. Potts. ANESTHESIOLOGIST: Dr. Ramos Driscoll. ANESTHESIA: General. PRE-OP DIAGNOSIS: Cervical uterine fibroid. POST-OP DIAGNOSIS: Cervical uterine fibroid. OPERATIVE PROCEDURE: 1. Cystoscopy. 2. Bilateral retrograde pyelographies. 3. Insertion of bilateral ureteral stents (6-Qatari). INDICATION FOR PROCEDURE: Ms. Hartley is a 48-year-old female who is followed by Dr. Hicks because of a rather large cervical fibroid. She is scheduled to undergo an abdominal hysterectomy today. Dr. Hicks requested placement of bilateral ureteral stents for easier identification of the ureters during the planned surgery. The patient denies any history of renal symptoms, and no history of hematuria. PATHOLOGY: At cystoscopy, the bladder mucosa looked normal. There were no suspicious bladder lesions seen. There was an extrinsic compression on the dome of the bladder. There was a single orthotopic ureteral orifice bilaterally. Retrograde pyelographies showed normal ureters and collecting systems without any hydronephrosis. DESCRIPTION OF PROCEDURE: Under general anesthesia with the patient in the lithotomy position and after proper scrubbing and draping, cystoscopy was performed. The bladder was carefully inspected and the above findings were noted. A flexible-tip guidewire was introduced into the left ureteral orifice. A size 5-Qatari open-ended catheter was fed on top of the guidewire and positioned in the distal ureter. Retrograde pyelography was performed demonstrating the ureter and the collecting system on fluoroscopy. A size 6-Qatari stent was then placed with the proximal end coiling in the renal pelvis and the distal end coiling inside the bladder. Exactly the same procedure was performed on the right side. A size 16-Qatari Parra catheter was then passed inside the bladder and the balloon inflated with 10 cc of water. The patient tolerated this procedure well. Dr. Hicks then proceeded with the planned surgery. The plan to leave the stents in place for about one week, they will be removed in the office under local anesthesia. [id number]/[facility] #: [id number] MTDD
--- NOTE | 2018-06-29 20:19 | OP ---
OPERATIVE REPORT: DATE OF OPERATION: 06/29/18 DATE OF : 70 SURGEON: Agnes Hicks MD KEY ENTRY OPERATOR: Jessica Saleh MD PRE-OP DIAGNOSES: 1. Menorrhagia. 2. Fibroid uterus. POST-OP DIAGNOSES: 1. Menorrhagia. 2. Fibroid uterus. OPERATIVE PROCEDURE: Supracervical hysterectomy and bilateral salpingectomy. FINDINGS: Revealed approximately 5 cm posterior cervical fibroid, 2 mm thickness of cervix circumferentially around the fibroid. Normal-appearing tubes and ovaries bilaterally. ESTIMATED BLOOD LOSS: 200 cc. URINE OUTPUT: 300 cc of blood tinged urine. FLUIDS: 1800 cc of crystalloid. COMPLICATIONS: None apparent. DISPOSITION: Stable to recovery room. DESCRIPTION OF PROCEDURE: The patient was placed in dorsal lithotomy position after a prep and drape was carried out. Prior to the prepping and draping, the patient had bilateral ureteral stents placed given the location of the cervical fibroid for identification of ureters during the hysterectomy portion of the case. This was done by Dr. Potts. Please see his operative note for that procedure. Prior to placing the patient in dorsal lithotomy position, a dilute solution of 20 units per 100 cc of vasopressin was injected into the cervical fibroid. A total of 18 cc injected into the cervical fibroid, which could be seen transvaginally. After completion of stent placement and vasopressin injection, the patient was placed in dorsal lithotomy position and the abdomen and vagina were prepped and redraped in a sterile standard fashion. With identification of universal protocol, an incision was then made after injection of 15 cc of 0.5% Marcaine with epi at the old Pfannenstiel incision. After injection, a scalpel was used to make incision through old incision. This was carried down through the fascia. Fascia was scored in the midline and extended laterally and superiorly using curved Hancock scissors. The peritoneum was then entered sharply using Metzenbaum. The peritoneal incision was extended bluntly. The colic gutters were packed off with moist laparotomy sponge x2 and a moist towel x1. The uterus was identified and long Brandie's were placed across the ovarian ligament and broad ligament on either side. The round ligament was approached first, clamped with Brandie, transected with Bovie coagulation, and suture ligated using 0 Vicryl. This was first done on the right and then repeated on the left. The bladder flap was created through blunt and sharp dissection. An area was identified. In the window of the left broad ligament first, Linda x1 was placed across this, transected and suture ligated using a free tie, then suture ligated using 0 Vicryl for complete hemostasis. This process was repeated on the right. The uterine arteries were then skeletonized bilaterally. Linda clamp was placed x2, transected and suture ligated using 0 Vicryl x2, back clamped with Georgia's. The bladder was clearly below the dissection site. The large fibroid in the cervical body was clearly identified. Linda was placed x2 on either side of the cardinal ligament, transected sharply with scalpel and suture ligated using 0 Vicryl x1. The ureters were palpated via the stents and were palpated free from the dissection site. There was some bleeding from the uterine artery pedicle, which was clamped with a right angle clamp and suture ligated first with a 2-0 Vicryl and then with a 0 Vicryl for complete hemostasis. At that point, the decision was made to amputate the uterus and during this process, the cervical fibroid dissected free from the remainder of the 2 mm circumferential body of the cervix removing the fibroid and the uterus in total. The cervix was noted to be partially removed in that dissection and given the thinness of the cervix , the decision was made to leave the remainder of the cervix that was present. Interrupted [id number] sutures were placed x8 across the base of the cervix for complete reapproximation and hemostasis. Lavage was performed, and at that point, attention was focused on removal of the tubes. The right tube was approached first. A Linda was placed across the base of the mesosalpinx. The right tube was excised with Metzenbaum scissors and suture ligated in a Linda fashion using a 2-0 Vicryl. This process was repeated on the left. Hemostasis was assured at the round ligament pedicles, sutures trimmed, as well as the salpingectomy sites were noted to be hemostatic. The remains of the cervical stump were noted to be hemostatic. All ovarian and broad ligament pedicles as well as cardinal ligament pedicles were noted to be hemostatic. A small area of bleeding noted in the anterior bladder reflection, which was made hemostatic using a 2-0 Vicryl in an interrupted fashion. After copious lavage, assurance of correct counts and hemostasis, the peritoneum was reapproximated using 3-0 Vicryl in a running fashion. Subfascial area was visualized, noted to be hemostatic. This fascia was reapproximated using 0 Vicryl x2 in a running fashion. Subcu was lavaged, hemostasis assured with Bovie coagulation. Subcu fat stitch was placed using 2-0 Vicryl in an interrupted fashion. The skin was then reapproximated using 4-0 Monocryl in a subcuticular fashion. Mastisol and Steris were applied. All sponge, needle, instrument, and blade counts were correct throughout the case. The patient tolerated the procedure well and went to recovery room in stable condition. [id number]/[facility] #: [id number] GEOFFREY
[2018-06-29] MEDS ORDERED: Hydrochlorothiazide TAB* 25 MG PO SCH (21:00)
[2018-06-29] MEDS ORDERED: hydrALAZINE IV* 20 MG/ML VIAL IV SLOW PU PRN (22:57)
--- NOTE | 2018-06-30 00:15 | CONS ---
CC: Dr. Therese Corral; Dr. Art Potts; Dr. Agnes Hicks * CONSULTATION REPORT: DATE OF CONSULT: 06/29/18 PRIMARY CARE PROVIDER: Dr. Therese Corral. PHYSICIAN REQUESTING CONSULTATION: Dr. Agnes Hicks. ATTENDING PHYSICIAN: Dr. Alessandro Marroquin (dictated by Jared Cisse NP). REASON FOR CONSULTATION: Perioperative and postoperative hypertension. HISTORY OF PRESENT ILLNESS: Ms. Hartley is a 48-year-old female with past medical history significant for migraines, hypertension, uterine fibroid, who underwent total abdominal hysterectomy and salpingectomy with Dr. Hicks in addition to ureteral stents placed by Dr. Potts. The patient has been noted to be hypertensive with systolic blood pressures up to the 190s and diastolics in the 110s while in the recovery room. Blood pressures did not improve with pain control. The patient had held her morning hydrochlorothiazide preoperatively as instructed. By the time she made it to the surgical floor, she was drowsy and sleeping, but her blood pressures had improved to the 140s to 150 systolic. She took her hydrochlorothiazide at bedtime and it was felt that with her blood pressures improving, we will resume her hydrochlorothiazide at bedtime with IV fluids and continue to monitor her blood pressure. The hospitalists were asked to evaluate her due to her hypertension. She is lethargic, but denies fever, chills, chest pain, shortness of breath. She states that she is having some abdominal discomfort. PAST MEDICAL HISTORY: 1. Migraines. 2. Hypertension. 3. Uterine fibroids. PAST SURGICAL HISTORY: 1. Status post section. 2. Status post appendectomy. MEDICATIONS: Home medications include: 1. Hydrochlorothiazide 25 mg oral daily at bedtime. 2. Vitamin B12 500 mcg oral daily. 3. Vitamin D 2000 units oral every morning. FAMILY HISTORY: Father with a history of heart disease. Denies any family history of coronary artery disease or diabetes. SOCIAL HISTORY: She denies tobacco, alcohol, or recreational drug use. Her , Moshe Hartley, will be her surrogate decision maker in the event she is unable to make decisions for herself. REVIEW OF SYSTEMS: I performed a 11-point review of systems, all the pertinent positives and negatives are mentioned in the history of present illness. Remainder of the review of systems are negative. PHYSICAL EXAMINATION: Vital Signs: Temperature 97.9, heart rate 73, respiratory rate 16, O2 sat 98% on room air, blood pressure 146/66. General Appearance: The patient is alert, pleasant, appears to be in no acute distress. HEENT: Normocephalic, atraumatic. Pupils are equal and reactive to light. Extraocular movements are intact. Respiratory: There is no accessory muscle use. Lungs: Clear to auscultation bilaterally. Cardiovascular: Regular rate and rhythm. S1, S2 present. There are no murmurs, rubs, or gallops heard. Abdomen: Soft, nontender, and nondistended. There is some mild tenderness near her incisional site in her suprapubic area. Bowel sounds are hypoactive x4. Extremities: No lower extremity edema. DP and PT pulses are 2+ and symmetrical. Musculoskeletal: There is no clubbing or cyanosis noted. She exhibits good strength in all extremities. Neurological: She is sleepy, but is arousable and oriented. Cranial nerves II through XII are grossly intact. Psychological: She is calm and cooperative. Skin: There are no rashes or abnormalities seen. She has a dressing that is clean, dry, and intact to her suprapubic area. DIAGNOSTIC STUDIES/LAB DATA: Preoperative labs: CBC from 06/18/18, white blood cell count 9.1, hemoglobin 12.9, hematocrit 39, platelet count 357. IMPRESSION: Ms. Hartley is a 48-year-old female with past medical history significant for migraines, hypertension, and uterine fibroids who underwent a total abdominal hysterectomy with Dr. Hicks today. Hospitalists have been asked to assist with co-medical management due to her hypertension in the perioperative period. ASSESSMENT/PLAN: 1. Uterine fibroids. Status post total abdominal hysterectomy and salpingectomy. Postop day management will be per Gynecology. Additionally, the patient had ureteral stents placed due to the location of her fibroids. To leave urinary catheter in place until the morning at which time it will be removed. 2. Hypertension. The patient's hypertension has actually improved with just pain management. I suspect it is a combination of holding her hydrochlorothiazide last night and pain. We will continue to monitor for now. She can have hydralazine as needed for systolic blood pressures greater than 185 , diastolics greater than 110. Resume her hydrochlorothiazide at bedtime. If she continues being hypertensive and her pain is controlled, we can consider adjusting her antihypertensive medications. 3. Migraines. She will be on oxycodone and Percocet as needed. 4. Fluids, electrolytes, and nutrition. She will be on a regular diet. 5. Code status will be a full code. 6. Deep venous thrombosis prophylaxis: She will have SCDs per GEOPHYSICAL PROSPECTOR. DISPOSITION: Inpatient with disposition per GEOPHYSICAL PROSPECTOR. TIME SPENT: Time for this consultation was approximately 50 minutes, greater than half of that was spent with the patient discussing medications, past medical history, the events leading up to her arrival today, and performing physical examination. The case has been reviewed with the attending, Dr. Marroquin, who agrees with the plan of care. Thank you for this consultation. We will continue to follow along. Please do not hesitate to call with any questions. JARED CISSE NP [id number]/[facility] #: [id number] GEOFFREY
[2018-06-30] MEDS: Ibuprofen TAB* 600 MG PO SCH ×3 (03:41→14:43)
[2018-06-30 06:00] LABS: ABS Basophils 0.1 10^3/ul (0-0.2); ABS Eosinophils 0 10^3/ul (0-0.6); ABS Lymphocytes 1.9 10^3/ul (1.0-4.8); ABS Monocytes 1.2 10^3/ul (0-0.8); ABS Neutrophils 13.7 10^3/ul (1.5-7.7); ABS Nucleated RBC 0 10^3/ul; Eosinophil % 0.1 %; Hematocrit 35 % (35-47); Hemoglobin 11.7 g/dl (12.0-16.0); Lymphocyte % 11.3 %; Mean Corpuscular HGB Conc 33 g/dl (31-36); Mean Corpuscular Hemoglobin 26 pg (27-31); Mean Corpuscular Volume 78 fL (80-97); Mean Platelet Volume 7.9 fL (7.4-10.4); Nucleated Red Blood Cells % 0; Platelet Count 349 10^3/ul (150-450); Red Blood Count 4.56 10^6/ul (4.00-5.40); Red Cell Distribution Width 16 % (10.5-15); White Blood Count 16.8 10^3/ul (3.5-10.8)
[2018-06-30] MEDS ORDERED: Cholecalciferol TAB* 1000 UNITS PO SCH (09:00)
[2018-06-30] MEDS ORDERED: Cyanocobalamin TAB* 500 MCG PO SCH (09:00)
[2018-06-30] MEDS ORDERED: amLODIPine TAB* 5 MG PO SCH (11:00)
--- NOTE | 2018-06-30 11:04 | PN ---
Progress Note - Progress Note Date of Service: 06/30/18 SOAP: Subjective: [Pt doing great last took pain meds > 12 hours ago] Objective: [BP range 160-140/100-76] i/o: -900 abdomen: soft appropriate tenderness incision C/D/I EXT; non tender no swelling Laboratory Tests 06/30/18 05:24 WBC 16.8 H RBC 4.56 Hgb 11.7 L Hct 35 MCV 78 L MCH 26 L MCHC 33 RDW 16 H Plt Count 349 MPV 7.9 Neut % (Auto) 81.3 Lymph % (Auto) 11.3 [place] % (Auto) 7.0 Eos % (Auto) 0.1 Baso % (Auto) 0.3 Absolute Neuts (auto) 13.7 H Absolute Lymphs (auto) 1.9 Absolute Monos (auto) 1.2 H Absolute Eos (auto) 0 Absolute Basos (auto) 0.1 Absolute Nucleated RBC 0 Nucleated RBC % 0 Assessment: [Pt s/p supraacervical hysterectomy bilateral salpingectomy for menorrhagia/ cervical fibroid . PT with ureteral stent placed priro to surgery given location of fibroid Plan: [Pt to begin norvasc( amlodipine ) 5 mg daily for better BP control. Pt doing great post op and will d/c to home today after amlodipine doing. Pt given discharge instruction and verbalized understanding of discharge insructions. Pt to f/u in 1 week for incision check and 4 weeks for full post op check up. See discharge sheet.]
[2018-06-30 15:05] VITALS: BP 172/79
[2018-07-02] MEDS ORDERED: Scopolamine PATCH Remove* 1 NOTE MISC PATCH OFF ONE (10:18)
== END 2018-06-30 17:00 | disposition home or self-care (01) ==
LOC: INTOOBSV 06:04 → OBSVTOIN 06:04 → AA 06:04 → SSU 14:58
PROVIDERS: ADMIT Obstetrics & Gynecology; ATTEND Obstetrics & Gynecology
DX: D25.0 Submucous leiomyoma of uterus (principal); G43.909 Migraine, unspecified, not intractable, without status migrainosus; I10 Essential (primary) hypertension; Z90.89 Acquired absence of other organs
CPT/HCPCS: 36415; 74420; 81025; 85025; 88302; 88307; A9270-GY; G0378; J0360; J0694; J0780; J1100; J1170; J1885; J2250; J2405; J2704; J3010